=== PATIENT | male | born 1970 | race Caucasian/White ===

== ENCOUNTER → 2023-06-09 23:20 | Outpatient (CLI) | payer BC, SELFPAY ==
[2023-06-09 18:12] LABS: Alanine Aminotransferase 27 U/L (12-78); Albumin Level 4.8 g/dl (3.5-5.0); Albumin/Globulin Ratio 1.4 (1.1-1.8); Alkaline Phosphatase 74 U/L (38-126); Aspartate Amino Transferase 32 U/L (17-59); Bilirubin,Total 0.4 mg/dl (0.2-1.3); Blood Urea Nitrogen 14 mg/dl (9-20); Calcium 9.7 mg/dl (8.4-10.2); Carbon Dioxide 32 mmol/L (22.0-30.0); Chloride 102 mmol/L (98-107); Chol/HDL Ratio 3.4 (1-3.5); Cholesterol 244 mg/dl (140-200); Estimated Glomerular Filt Rate 119 ml/min (>60); GFR (African American) 144 ML/MIN (>60); Globulin 3.4 g/dL (1.3-3.2); Glucose 162 mg/dl (74-100); HDL Cholesterol 72 mg/dl (40-60); Sodium 143 mmol/L (136-145); Total Protein,Serum 8.2 g/dl (6.3-8.2); Triglycerides 245 mg/dl (30-150); VLDL Cholesterol 49 mg/dL (0-40)
[2023-06-09 18:21] LABS: Amphetamine/Metha Screen,Urine Negative ng/ml (<1000); Benzodiazepines Screen,Urine Negative ng/ml (<200)
[2023-06-09 18:22] LABS: Barbiturates Screen,Urine Negative ng/ml (<200)
[2023-06-09 18:23] LABS: Direct LDL Cholesterol 124.75 mg/dL (100-129)
[2023-06-09 18:23] LABS: Cannabinoid Screen,Urine Negative ng/ml (<50); Methadone Screen,Urine Negative ng/ml (<300)
[2023-06-09 18:24] LABS: Cocaine Screen,Urine Negative ng/ml (<300)
[2023-06-09 18:25] LABS: Opiate Screen,Urine Negative ng/ml (<300)
[2023-06-09 18:26] LABS: Phencyclidine Screen,Urine Negative ng/ml (<25)
[2023-06-09 18:34] LABS: Microalbumin/Creatinine Ratio 82.9
[2023-06-09 18:37] LABS: Creatinine,Urine Random 171 mg/dL (Not Estab.)
[2023-06-09 18:38] LABS: Basophils # 0.1 K/mm3 (0-0.2); Basophils % 0.9 % (0.1-2.0); Eosinophils # 0.5 K/mm3 (0.0-0.4); Eosinophils % 7.6 % (0.1-12.0); Hematocrit 45.3 % (42.0-52.0); Hemoglobin 15.1 g/dL (14.1-18.0); Lymphocytes # 2.3 K/mm3 (0.7-4.5); Lymphocytes % 34.1 % (10-50); Mean Corpuscular HGB Conc 33.4 g/dL (31.8-35.4); Mean Corpuscular Hemoglobin 30.6 pg (27.0-31.2); Mean Corpuscular Volume 91.8 fl (80-94); Mean Platelet Volume 8.6 fl (7.4-10.4); Monocytes # 0.4 K/mm3 (0.1-1.0); Monocytes % 6.4 % (1.7-9.3); Neutrophils # 3.4 K/mm3 (1.8-7.8); Platelet Count 304 K/mm3 (142-424); Red Blood Count 4.94 M/mm3 (4.60-6.20); Red Cell Distribution Width 13.1 % (11.5-17.5); White Blood Count 6.7 K/mm3 (4.8-10.8)
[2023-06-09 18:43] LABS: Hemoglobin A1C 6.2 % (4.0-6.0); Prostate Specific Ag Screen 1.5 ng/ml (0.0-4.0); Thyroid Stimulating Hormone 1.02 uIU/mL (0.465-4.68)
== END ==
PROVIDERS: PCP Emergency Medicine; Visit Provider Nurse Practitioner Family
DX: E11.9 Type 2 diabetes mellitus without complications (principal); Z76.89 Persons encountering health services in other specified circumstances; Z79.899 Other long term (current) drug therapy; Z79.84 Long term (current) use of oral hypoglycemic drugs; Z12.5 Encounter for screening for malignant neoplasm of prostate
CPT/HCPCS: 80053; 80061; 80305; 82043; 82306; 82570; 83036; 84443; 85025; G0103

== ENCOUNTER 2023-12-29 09:12 | Outpatient (CLI) | payer BC, SELFPAY ==
--- NOTE | 2023-12-29 09:47 | XR_ITS ---
FINAL REPORT CLINICAL HISTORY: shortness of breath states congestion & sinus infection for about a month COMPARISON: None FINDINGS: Two views of the chest were obtained. The heart size and pulmonary vascularity are within normal limits. The mediastinum is normal. No acute pulmonary abnormality is identified. There is no pneumothorax. The bony thorax is intact. IMPRESSION: No active cardiopulmonary disease. Reviewed, Interpreted and Dictated by Juancarlos Rodríguez III, MD Transcribed by Yu Grant Authenticated and [facility]
[2023-12-29 17:54] LABS: Coronavirus 19, PCR Not Detected (NotDetected); Influenza A, PCR Not Detected (NotDetected); Influenza B, PCR Not Detected (NotDetected)
== END 2023-12-29 23:59 | disposition home or self-care (01) ==
LOC: RAD 09:12
PROVIDERS: PCP Nurse Practitioner Family; Visit Provider Family Medicine
DX: R06.2 Wheezing (principal); J40 Bronchitis, not specified as acute or chronic; R69 Illness, unspecified
CPT/HCPCS: 71046; 87636

== ENCOUNTER 2024-03-20 09:30 | Outpatient (CLI) | payer BC, SELFPAY ==
[2024-03-21 07:26] LABS: Creatinine,Urine Random 83 mg/dL (Not Estab.)
== END 2024-03-20 23:59 | disposition home or self-care (01) ==
LOC: LAB.DROPOF 03-21 09:30
PROVIDERS: PCP Nurse Practitioner Family; Visit Provider Nurse Practitioner Family
DX: E11.9 Type 2 diabetes mellitus without complications (principal); I10 Essential (primary) hypertension; Z79.899 Other long term (current) drug therapy
CPT/HCPCS: 82043; 82570

== ENCOUNTER 2024-03-29 11:07 | Outpatient (CLI) | payer BC, SELFPAY ==
[2024-03-29 11:52] LABS: Basophils % 0.6 % (0.1-2.0); Eosinophils # 0.1 K/mm3 (0.0-0.4); Eosinophils % 0.7 % (0.1-12.0); Hematocrit 35.4 % (42.0-52.0); Hemoglobin 12.6 g/dL (14.1-18.0); Lymphocytes # 2.4 K/mm3 (0.7-4.5); Lymphocytes % 34.4 % (10-50); Mean Corpuscular HGB Conc 35.5 g/dL (31.8-35.4); Mean Corpuscular Hemoglobin 32.1 pg (27.0-31.2); Mean Corpuscular Volume 90.5 fl (80-94); Mean Platelet Volume 7.5 fl (7.4-10.4); Monocytes # 0.6 K/mm3 (0.1-1.0); Neutrophils % 56.2 % (37.0-80.0); Platelet Count 298 K/mm3 (142-424); Red Blood Count 3.91 M/mm3 (4.60-6.20); Red Cell Distribution Width 13.5 % (11.5-17.5); White Blood Count 7.1 K/mm3 (4.8-10.8)
[2024-03-29 13:29] LABS: Alanine Aminotransferase 17 U/L (12-78); Albumin Level 4.2 g/dl (3.5-5.0); Albumin/Globulin Ratio 1.7 (1.1-1.8); Alkaline Phosphatase 58 U/L (38-126); Anion Gap 8.9 mEq/L (5-15); Aspartate Amino Transferase 25 U/L (17-59); Bilirubin,Total 0.5 mg/dl (0.2-1.3); Blood Urea Nitrogen 12 mg/dl (9-20); Calcium 9.7 mg/dl (8.4-10.2); Carbon Dioxide 30 mmol/L (22.0-30.0); Chloride 104 mmol/L (98-107); Chol/HDL Ratio 2.3 (1-3.5); Cholesterol 158 mg/dl (140-200); Estimated Glomerular Filt Rate 118 ml/min (>60); GFR (African American) 143 ML/MIN (>60); Globulin 2.5 g/dL (1.3-3.2); Glucose 115 mg/dl (74-100); HDL Cholesterol 70 mg/dl (40-60); Potassium 3.9 mmoL/L (3.5-5.1); Sodium 139 mmol/L (136-145); Total Protein,Serum 6.7 g/dl (6.3-8.2); Triglycerides 85 mg/dl (30-150); VLDL Cholesterol 17 mg/dL (0-40)
[2024-03-29 13:40] LABS: Direct LDL Cholesterol 63.47 mg/dL (100-129)
[2024-03-29 13:45] LABS: 25-OH Vitamin D, Total 36.1 ng/mL (30-100)
[2024-03-29 14:00] LABS: Thyroid Stimulating Hormone 0.79 uIU/mL (0.465-4.68)
[2024-03-29 15:06] LABS: Hemoglobin A1C 5.8 % (4.0-6.0)
== END 2024-03-29 23:59 | disposition home or self-care (01) ==
LOC: LAB 11:11
PROVIDERS: PCP Nurse Practitioner Family; Visit Provider Nurse Practitioner Family
DX: J06.9 Acute upper respiratory infection, unspecified (principal); I10 Essential (primary) hypertension; Z68.25 Body mass index [BMI] 25.0-25.9, adult
CPT/HCPCS: 36415; 80050; 80053; 80061; 82306; 83036; 84443; 85025

== ENCOUNTER 2025-03-22 09:42 | Outpatient (CLI) | payer BC, SELFPAY ==
--- OUTSIDE RECORDS SUMMARY | 2025-03-22 09:45 | XMS_ITS | Encounter Summary ---
Author Organization Healthcare Address [address] [id number] Care Team Providers Care Management Manager Name Role Phone Jefferson Sanchez APRN Primary Care Provider [phone] Reason for Visit * Reason Comments Med Refill Encounter Details Date Type Department Care Team (Late st Contact Info) Description 01/29/2024 Refill [facility] [address] [place] [address] Margot Suarez MD [address] [place] [address] Social History Tobacco Use Types Packs/Day Years Used Date Smoking Tobacco: Never Smokeless Tobacco: Never PHQ-2 Answer Date Recorded Patient Health Questionnaire-2 Score 0 02/03/2023 PHQ-2A Answer Date Recorded Patient Health Questionnaire-2 Score 0 02/03/2023 Sex and Gender Information Value Date Recorded Sex Assigned at Not on file Legal Sex Male 8:31 PM EDT Gender Identity Not on file Sexual Orientation Not on file documented as of this encounter Plan of Treatment Not on file documented as of this encounter Visit Diagnoses Not on filedocumented in this encounter Additional Health Concerns Assessment Noted Time A fall risk assessment has been complete d for the patient 05/20/2021 12:44 PM EDT A Body Mass Index follow-up plan has been documented for the patient 02/03/2023 4:13 PM EDT documented as of this encounter Care Teams Management Manager Relationship Specialty Start Date End Date Jefferson Sanchez APRN [address] [facility] JEET Sharma [id number] PCP - General 01/24/24 documented as of this encounter
--- OUTSIDE RECORDS SUMMARY | 2025-03-22 09:45 | XMS_ITS | Encounter Summary ---
Author Organization [facility] Address [address] [id number] Care Team Providers Care Crossband Layer Name Role Phone Margot Suarez MD Primary Care Provider [phone] Jefferson Sanchez APRN Primary Care Provider [phone] Reason for Visit * Reason Comments Med Refill Encounter Details Date Type Department Care Team (Late st Contact Info) Description 03/14/2021 [facility]ill [facility] [address] [place] [address] Margot Suarez MD [address] [place] [address] Social History Tobacco Use Types Packs/Day Years Used Date Smoking Tobacco: Never Sex and Gender Information Value Date Recorded Sex Assigned at Not on file Legal Sex Male 8:31 PM EDT Gender Identity Not on file Sexual Orientation Not on file documented as of this encounter Miscellaneous Notes * Telephone Encounter - Margo Post, PharmD - 03/15/2021 8:30 PM EDT Per protocol, the following medications, meloxicam, have been approved for #30 + 0 refills. The medication refill request(s) have been sent to [facility] pharmacy. Patient must make appointment for additional refills. documented in this encounter Plan of Treatment Not on file documented as of this encounter Visit Diagnoses Not on filedocumented in this encounter Care Teams Crossband Layer Relationship Specialty Start Date End Date Margot Suarez MD [address] [place] [phone] PCP - General 01/29/21 01/23/24 Jefferson Sanchez APRN [address] [place] [address] PCP - General 01/24/24 documented as of this encounter
--- OUTSIDE RECORDS SUMMARY | 2025-03-22 09:45 | XMS_ITS | Encounter Summary ---
Author Organization Healthcare Address [address] [address] Care Team Providers Care Social Media Analyst Name Role Phone Jefferson Sanchez APRN Primary Care Provider [phone] Reason for Visit * Reason Comments Med Refill Encounter Details Date Type Department Care Team (Late st Contact Info) Description 08/22/2024 Refill [facility] [address] [place] [address] Margot Suarez MD [address] [place] [address] Type 2 diabetes mellitus without complication, without long-term current use of insulin ([facility]) Social History Tobacco Use Types Packs/Day Years [...] documented as of this encounter Visit Diagnoses Diagnosis Type 2 diabetes mellitus without complication, without long-term current use of insulin documented in this encounter Additional Health Concerns Assessment Noted Time A fall risk assessment has been complete d for the patient 05/20/2021 12:44 PM EDT A Body Mass Index follow-up plan has been documented for the patient 02/03/2023 4:13 PM EDT documented as of this encounter Care Teams Social Media Analyst Relationship Specialty Start Date End Date Jefferson Sanchez APRN [address] [place] [address] PCP - General 01/24/24 documented as of this encounter
--- OUTSIDE RECORDS SUMMARY | 2025-03-22 09:45 | XMS_ITS | Data Portability ---
Author Organization [facility] KEIRY Mccall P[facility] CLOS[facility] Address [address] [place] [address] Care Team Providers Care Investigator Cash Shortage Name Role Phone EMILE LOMAX Primary Care Provider Assessment No assessment recorded. Plan of Treatment Reminders Order Date Submit Date Provider Last Modified By Organization Details Last Modified Time Details Appointments BOTOX MIGRAINE 2024 11:30A M SAL DODGE DO Not available Not available Not available Lab None recorded. Referral None recorded. Procedures None recorded. Surgeries None recorded. Imaging None recorded. Medication Orders ondansetr on 8 mg disintegr ating tablet 2024 025 [facility] [address] [place], [address], 12/13/2024 09:23:17 Patient TargetsNo targets recorded. Patient Instructions Encounter Date Encounter Id Patient Instructions Last Modified By Organization Details Last Modified Time 08/29/2024 [id number] medical record request* - [facility] records, specifically need last office botox note [email or web address] Not available 09/05/2024 08:33:35 Reason for Referral None Reported. Problems Name Problem SNOMED Code Status Onset Date Resolution Date Notes Provider Name and Address Organization Details Recorded Time Chronic intractable migraine without aura 3281286777517 05 Active 2024 SAL DODGE DO [address] [place], [address] , [facility] 09:22:18 Problem Notes None recorded. Procedures Surgical History Date Name Laterality Status Provider Name and Address Organization Details Recorded Time 5 Botox Injection - Migraine completed SAL DODGE, DO [address] [place], [address], [facility] 02/27/2025 12:48:42 5 Botox Injection - Migraine completed SAL DODGE, DO [address] [place], [address], [facility] 12/12/2024 09:22:17 4 Botox Injection - Migraine completed SAL DODGE, DO [address] [place], [address], [facility] 09/16/2024 08:54:09 Imaging Results None recorded. Procedure Notes None recorded. Medical Equipment None Reported. Allergies Allergen ID Allergen Name Allergen Category Reaction Reaction Severity Criticality Documentation Date Start Date Code Code System Note Provider Name and Address Organization Details Recorded Time 172270 clindamyc in Not available diarrhea Not available Not available 08/29/2024 2582 RxNorm Lacey Kelsy [facility] 08:31:56 Medications Name Sig Start Date Stop Date Status Note LastModified by Organization Details LastModified Time atorvastat in 20 mg tablet Take 1 tablet every day by oral route. active Not Available Not Available No t Available hydrocodon e 5 mg-acetami nophen 325 mg tablet Take 1 tablet twice a day by oral route. active Not Available Not Available No t Available meloxicam 15 mg tablet Take 1 tablet every day by oral route. active Not Available Not Available No t Available aspirin 81 mg tablet,del ayed release Take 1 tablet every day by oral route. active Not Available Not Available No t Available ondansetro n 8 mg disintegra ting tablet Place 1 tablet every day by transling ual route as needed for 30 days. 2024 active Not Available Not Available Not Avai lable Vitamin C 250 mg chewable tablet Take 1 tablet every day by oral route. active Not Available Not Available No t Available propranolo l 40 mg tablet Take 1 tablet twice a day by oral route. active Not Available Not Available No t Available metformin 1,000 mg tablet Take 1 tablet twice a day by oral route. active Not Available Not Available No t Available lisinopril 5 mg tablet Take 1 tablet twice a day by oral route. active Not Available Not Available No t Available Januvia 25 mg tablet Take 1 tablet every day by oral route. active Not Available Not Available No t Available Botox 200 unit injection Take by injection route. active 08/29/24 -- May 2024 last injection Not Available Not Available Not Available [facility] Multivitam in For Men active Not Available Not Available N ot Available Ubrelvy 100 mg tablet Take one tablet at onset of migraine. active Not Available Not Available No t Available Vitals Date Recorded Body height Body mass index (BMI) Body weight Systolic And Diastolic Provider Name and Address Organization Details Last Updated DateTime 12/13/2024 173.99 cm 26.7 kg/m2 11713.24 g 130/82 mm[Hg] [facility] 12/13/2024 08:40:47 Date Recorded Body height Body mass index (BMI) Body weight Heart rate Oxygen saturation Oxygen saturation in Arterial blood by Pulse oximetry Systolic And Diastolic Provider Name and Address Organization Details Last Updated DateTime 5 173.99 cm 26.2 kg/m2 24944.6 6 g 85 /min 95 % 95 % 130/82 mm[Hg] [facility] 5 11:32:03 Date Recorded Body height Body mass index (BMI) Body weight Heart rate Oxygen saturation Oxygen saturation in Arterial blood by Pulse oximetry Systolic And Diastolic Provider Name and Address Organization Details Last Updated DateTime 4 173.99 cm 26.4 kg/m2 82455.2 6 g 76 /min 96 % 96 % 142/84 mm[Hg] Lacey Tierney [facility] 4 08:38:33 Date Recorded Body height Body mass index (BMI) Body weight Heart rate Oxygen saturation Oxygen saturation in Arterial blood by Pulse oximetry Systolic And Diastolic Provider Name and Address Organization Details Last Updated DateTime 4 173.99 cm 26.4 kg/m2 89597.2 6 g 77 /min 98 % 98 % 138/82 mm[Hg] Racquel Cabrera [facility] 4 08:34:02 Social History Question Answer Notes LastModified by Organizat ion Details LastModified Time Tobacco Smoking Status Never [facility]oker [facility] 08/29/2024 08:33:30 What Was The Date Of Your Most Recent Tobacco Screening? 08/29/2024 [email or web address] Information not available 08/29/2024 What Is Your Relationship Status? [email or web address] Information not available 08/29/2024 Sex: Male Functional Status Question Answer Note LastModified by Organizat ion Details LastModified Time Do you use any illicit or recreational drugs? No [email or web address] Information not available 08/29/2024 What is your level of alcohol consumption? Occasional [email or web address] Information not available 08/29/2024 Are you currently employed? Yes [email or web address] Information not available 08/29/2024 What is your occupation? sophie [email or web address] Information not available 08/29/2024 Mental Status None recorded. Family History Nothing Reported. Medical History Condition Response Anxiety Disorder N Diabetes Y Arthritis Y Parkinson's Disease N Tuberculosis N Cancer N Alzheimer's N Migraines Y Stroke N Depression N Glaucoma N High Cholesterol Y Heart Disease N Hypertension Y Neurological Problems N Past Encounters Encounter ID Performer Location Encounter Start Date Encounter Closed Date Diagnosis/Indication Diagnosis SNOMED-CT Code Diagnosis ICD10 Code Diagnosis Note [id number] SAL DODGE DO [facility] [address] [place] [address] 08/29/2024 08:19:09 08/30/2024 05:35:17 Chronic intractable migraine without aura 5024139566 46727 G43.711 Chronic condition that is not controlled . He is overdue for his botox injections so the headaches have significan t increased in frequency and severity. Will request his records and work on getting the botox approved to continue his treatment. He will also continue the propranolo l and ubrelvy. He does not need refills on these medication today. [id number] SAL DODGE DO NE[facility]OLOG[facility] [address] [place] [address] 09/16/2024 08:16:16 09/17/2024 09:00:06 Chronic intractable migraine without aura 7946799964 12957 G43.711 Chronic condition that is not controlled . He is overdue for his botox injections so the headaches have significan t increased in frequency and severity. He will also continue the propranolo l and ubrelvy. He does not need refills on these medication today. [id number] SAL DODGE DO NEUROLOGY [facility] [address] [place] [address] 12/13/2024 08:24:42 12/17/2024 00:22:04 Chronic intractable migraine without aura 6874474772 37499 G43.711 Chronic condition that is stable with BOTOX. Continue propranolo l and ubrelvy. Will send in some zofran for his nausea [id number] SAL DODGE DO NEUROLOGY [address] [place] [address] 02/28/2025 11:24:21 02/28/2025 11:57:47 Chronic intractable migraine without aura 4346336438 35335 G43.711 Chronic condition that is stable with BOTOX. Continue propranolo l and ubrelvy. Health Concerns Section Related Observation LastModified by Organization Detai ls LastModified Time None Recorded Concern Status LastModified by Organization Details LastModified Time None Recorded Advance Directives Directive None Recorded Payers Insurance Date Sequence Insurance Name Policy Number Policy Carbone Covered Member ID Carbone Member ID Guarantor Name 03/03/2025 1 [place] [id number] Librado Goldstein [id number] Librado Goldstein Notes Date Note Type Note Provider Name and Address Organization Details Recorded Time 08/29/2024 text/html 54 y/o right handed male here for neurologic follow up on his migraines. He is a former patient of mine from [place]. He has been receiving botox injections for several years to control his headaches. His last injections were done in March he believes.He takes propranolol for migraines and blood pressure. He uses ubrelvy for acute migraines.His headaches have gotten much worse since he his behind on his injections.He is having daily headaches and a severe migraine 2-3 times a week. He has had to miss work couple times a week here of late due to the severity of his migraines. His PCP does prescribe hydrocodone for chronic pain. He has chronic neck pain. He use to see pain management but injections were of no benefit so he stopped going. SAL DODGE DO [address] [place], [address], [facility] 08/29/2024 09:06:06 09/16/2024 text/html Librado comes in f or his routine BOTOX injections for chronic migraines. He has been on the combination of botox and propranolol to control his migraines. He has ubrelvy for acute migraines. His last injections were 03/29/24.He has been having more severe headaches since he has had a gap in his botox treatments. He has ubrelvy as needed for acute migraines.He denies any new medical issues since his last visit. PRIOR VISIT: (08/29/24)54 y/o right handed male here for neurologic follow up on his migraines. He is a former patient of mine from [place]. He has been receiving botox injections for several years to control his headaches. His last injections were done in March he believes.He takes propranolol for migraines and blood pressure. He uses ubrelvy for acute migraines.His headaches have gotten much worse since he his behind on his injections.He is having daily headaches and a severe migraine 2-3 times a week. He has had to miss work couple times a week here of late due to the severity of his migraines. His PCP does prescribe hydrocodone for chronic pain. He has chronic neck pain. He use to see pain management but injections were of no benefit so he stopped going. SAL DODGE, DO [address] [place], [address], [facility] 09/16/2024 08:54:24 12/13/2024 text/html Librado comes in today for his routine BOTOX injections. He did well with the last injections. He has noticed a reduction in headache days but he does have a headache this morning. He has some nausea so he didn't try his ubrelvy. He denies any new health issues. PRIOR VISIT: (09/16/24)Librado comes in for his routine BOTOX injections for chronic migraines. He has been on the combination of botox and propranolol to control his migraines. He has ubrelvy for acute migraines. His last injections were 03/29/24.He has been having more severe headaches since he has had a gap in his botox treatments. He has ubrelvy as needed for acute migraines.He denies any new medical issues since his last visit. PRIOR VISIT: (08/29/24)54 y/o right handed male here for neurologic follow up on his migraines. He is a former patient of mine from [place]. He has been receiving botox injections for several years to control his headaches. His last injections were done in March he believes.He takes propranolol for migraines and blood pressure. He uses ubrelvy for acute migraines.His headaches have gotten much worse since he his behind on his injections.He is having daily headaches and a severe migraine 2-3 times a week. He has had to miss work couple times a week here of late due to the severity of his migraines. His PCP does prescribe hydrocodone for chronic pain. He has chronic neck pain. He use to see pain management but injections were of no benefit so he stopped going. SAL DODGE, DO [address] [place], [address], [facility] 12/13/2024 09:24:35 02/28/2025 text/html Librado comes in today for his routine botox injections. He has been stable since the last injections. He reports a couple bad migraines and he will have a dull headache about once a week. He finds his botox injections with the propranolol are working well.He can use ubrelvy and hydrocodone for an acute migraines. PRIOR VISIT: (12/13/24)Librado comes in today for his routine BOTOX injections. He did well with the last injections. He has noticed a reduction in headache days but he does have a headache this morning. He has some nausea so he didn't try his ubrelvy. He denies any new health issues. PRIOR VISIT: (09/16/24)Librado comes in for his routine BOTOX injections for chronic migraines. He has been on the combination of botox and propranolol to control his migraines. He has ubrelvy for acute migraines. His last injections were 03/29/24.He has been having more severe headaches since he has had a gap in his botox treatments. He has ubrelvy as needed for acute migraines.He denies any new medical issues since his last visit. PRIOR VISIT: (12/12/24)54 y/o right handed male here for neurologic follow up on his migraines. He is a former patient of mine from [place]. He has been receiving botox injections for several years to control his headaches. His last injections were done in March he believes.He takes propranolol for migraines and blood pressure. He uses ubrelvy for acute migraines.His headaches have gotten much worse since he his behind on his injections.He is having daily headaches and a severe migraine 2-3 times a week. He has had to miss work couple times a week here of late due to the severity of his migraines. His PCP does prescribe hydrocodone for chronic pain. He has chronic neck pain. He use to see pain management but injections were of no benefit so he stopped going. SAL DODGE, [facility] [place], [address], [facility] 02/28/2025 11:56:17
--- OUTSIDE RECORDS SUMMARY | 2025-03-22 09:45 | XMS_ITS | Encounter Summary ---
Author Organization [facility] Address [address] [id number] Care Team Providers Care Emergency Medical Technician Name Role Phone Margot Suarez MD Primary Care Provider [phone] Jefferson Sanchez APRN Primary Care Provider [phone] Reason for Visit * Reason Comments Med Refill Encounter Details Date Type Department Care Team (Late st Contact Info) Description 05/18/2021 Refill [facility] [address] [place] [address] Margot Suarez MD [address] [place] [address] Social History Tobacco Use Types Packs/Day Years Used Date Smoking Tobacco: Never Smokeless Tobacco: Never PHQ-2 Answer Date Recorded Patient Health Questionnaire-2 Score 0 05/20/2021 Sex and Gender Information Value Date Recorded Sex Assigned at Not on file Legal Sex Male 8:31 PM EDT Gender Identity Not on file Sexual Orientation Not on file COVID-19 Exposure Response Date Recorded In the last month, have you been in contact with someone who was confirmed or suspected to have Coronavirus / COVID-19? Unable to assess 05/20/2021 12:33 PM EDT documented as of this encounter Functional Status * Over the past 2 weeks, how often have you been bothered by any of the following problems? Question Answer Date of Assessment Author Little interest or pleasure in doing things Not at all 05/20/2021 12:44 PM EDT Robyn Mendez LPN Feeling down, depressed, or hopeless Not at all 05/20/2021 12:44 PM EDT Robyn Mendez LPN Patient Health Questionnaire-2 Score 0 05/20/2021 12:44 PM EDT Sharron Mendez LPN * Calculated C-SSRS Risk Score (Lifetime/Recent) Answer Date of Assessment Author No Risk Indicated 05/20/2021 12:44 PM EDT Robyn Canela LPN * Question Answer Date of Assessment Author 1. Wish to be (Past 1 Month) No 05/20/2021 12:44 PM EDT Robyn Mendez LPN 2. Non-Specific Active Suici jamie Thoughts (Past 1 Month) No 05/20/2021 12:44 PM EDT Jimmy Mendez LPN 6. Suicidal Behavior (Lifetime) No 12:44 PM EDT Robyn Mendez LPN documented as of this encounter Plan of Treatment Not on file documented as of this encounter Visit Diagnoses Not on filedocumented in this encounter Care Teams Emergency Medical Technician Relationship Specialty Start Date End Date Margot Suarez MD [address] [place] [id number] PCP - General 01/29/21 01/23/24 Jefferson Sanchez APRN [address] [place] [id number] PCP - General 01/24/24 documented as of this encounter
--- OUTSIDE RECORDS SUMMARY | 2025-03-22 09:45 | XMS_ITS | Clinical Summary ---
Author Organization Healthcare Address [address] [place] [address] Care Team Providers Care Application Software Developer Name Role Phone Jefferson Sanchez APRN Primary Care Provider Allergies Active Allergy Reactions Criticality Noted Date Comments Clindamycin Diarrhea Low 06/30/2020 Medications propranolol (Inderal) 40 MG tablet Take 40 mg by mouth 2 (two) times a day. 1 Active Lancets (OneTouch Delica Plus [id number]) misc 1 Active HYDROcodone-acetami nophen ([place]) 5-325 MG tablet 2 (two) times a day if needed. 1 Active OneTouch Ultra test strip 1 Active ascorbic acid (Vitamin C) 500 MG tablet 1 Active ondansetron ODT (Zofran-ODT) 8 MG disintegrating tablet DISSOLVE 1 TABLET IN MOUTH EVERY 8 HOURS 2 Active onabotulinumtoxinA (Botox) 100 units injection Inject into the muscle 1 (one) time. Every 3 months Active Multiple Vitamins-Minerals (MULTIVITAMIN ADULTS 50+ PO) Take 1 tablet by mouth 1 (one) time each day. Active aspirin (EQ Aspirin Adult Low Dose) 81 MG EC tabletIndications:H yperlipidemia, unspecified hyperlipidemia type Take 1 tablet (81 mg) by mouth 1 (one) time each day. as directed 90 tablet 3 3 Active lisinopril 10 MG tabletIndications:E ssential (primary) hypertension Take 1 tablet (10 mg) by mouth 2 (two) times a day. 180 tablet 3 3 Active metFORMIN (Glucophage) 1000 MG tabletIndications:T ype 2 diabetes mellitus without complication, without long-term current use of insulin Take 1 tablet (1,000 mg) by mouth 2 (two) times a day with meals. 180 tablet 3 3 Active ubrogepant (Ubrelvy) 100 MG tablet Take 1 tablet (100 mg) by mouth 1 (one) time each day. After 2 hours, a second dose may be taken if needed. Maximum dose: 200 mg in 24-hour period. 30 tablet 3 Active tiZANidine (Zanaflex) 4 MG tabletIndications:C ervicalgia Take 1 tablet (4 mg) by mouth every 6 (six) hours if needed for muscle spasms for up to 10 days. 90 tablet 3 Active atorvastatin (Lipitor) 20 MG tablet Take 1 tablet (20 mg) by mouth 1 (one) time each day. 90 tablet 3 3 Active SITagliptin (Januvia) 100 MG tabletIndications:T ype 2 diabetes mellitus without complication, without long-term current use of insulin Take 1 tablet (100 mg) by mouth 1 (one) time each day. 90 tablet 4 Active meloxicam (Mobic) 15 MG tabletIndications:C ervicalgia Take 1 tablet (15 mg) by mouth 1 (one) time each day. 90 tablet 4 Active Active Problems Problem Noted Date Diagnosed Date Balanitis 05/04/2021 Diabetes mellitus, type 2 07/02/2020 Essential (primary) hypertension 07/02/2020 Migraine 07/02/2020 Immunizations Immunization Administration Dates Next Due Influenza, seasonal, injectable, preservative fr ee 05/16/2017 Zoster, Recombinant 02/03/2023 Family History Medical History Relation Name Comments arteriosclerotic cardiovascular disease Paternal Grand father Relation Name Status Comments Paternal Grandfather Social History Tobacco Use Types Packs/Day Years [...] on file Sexual Orientation Not on file Last Filed Vital Signs Vital Sign Reading Time Taken Comments Blood Pressure 138/86 02/03/2023 3:17 PM EDT Pulse 82 02/03/2023 3:17 PM EDT Temperature 36.3 C (97.4 F) 05/20/2021 12:42 PM EDT Respiratory Rate 18 05/20/2021 12:42 PM EDT Oxygen Saturation 98% 02/03/2023 3:17 PM EDT Inhaled Oxygen Concentration - - Weight 82 kg (180 lb 12.4 oz) 02/03/2023 3:17 PM EDT Height 174 cm (5' 8.5 ) 02/03/2023 3:17 PM EDT Body Mass Index 27.09 02/03/2023 3:17 PM EDT Plan of Treatment Health Maintenance Due Date Last Done Comments [facility]-HIV Screening 1970 [facility]-Hepatitis C Screening 1971 [facility]-Infant/Child/Adol SDOH Screenings 1971 [id number] Vaccine (#1) 1976 Diabetes: Dental Exam 1981 [facility]- SDOH Screenings 1989 [facility]-Adult SDOH Screenings 1989 [facility]-DTaP,Tdap,and Td Vaccines (1 - Tdap) 1990 [facility]-Hepatitis B Vaccines (1 of 3 - 19+ 3-dose series) 1990 [facility]-Pneumococcal Vaccine: 50+ Years (1 of 2 - PCV) 1990 CT Colonography 2016 FIT-DNA 2016 FIT 2016 FOBT 2016 Sigmoidoscopy 2016 [facility]-Zoster Vaccines (2 of 2) 03/31/2023 02/03/2023 [facility]-Diabetes: Hemoglobin A1C 08/03/2023, 07/08/2022, 09/29/2021, Additional history exists [facility]-Depression Screening 02/04/2024 02/03/2023 [facility]-Influenza Vaccine (#1) 2025 05/16/2017 Colonoscopy 09/27/2029 09/27/2019 [facility]-Colorectal Cancer Screening 09/27/2029 [facility]-Obesity Intervention Completed 023, 07/08/2022, 09/29/2021, Additional history exists HPV Vaccines Aged Out No longer eligi ble based on patient's age to complete this topic [facility]-HIB Vaccines Aged Out No longer e ligible based on patient's age to complete this topic [facility]-Hepatitis A Vaccines Aged Out No longer eligible based on patient's age to complete this topic [facility]-IPV Vaccines Aged Out No longer e ligible based on patient's age to complete this topic [facility]-Rotavirus Vaccines Aged Out No lo nger eligible based on patient's age to complete this topic Procedures Procedure Name Priority Date/Time Associated Diagnosis Comments HEMOGLOBIN A1C Routine 02/03/2023 3:49 PM EDT Type 2 diabetes mellitus without complication, without long-term current use of insulin ([facility]) COLONOSCOPY EXTERNAL RESULT 09/27/2019 from Last 3 Months or Most Recently Relevant to Health Maintenance Results * (ABNORMAL) Hemoglobin A1c (02/03/2023 3:49 PM EDT) Hemoglobin A1c 6.3(H) <5.7 % 02/03/2023 6:57 PM EDT [facility] Blood Venous blood specimen / Unknown Venipuncture / Unknown 02/03/2023 3:49 PM EDT 02/03/2023 3:49 PM EDT Narrative [facility] - 02/03/2023 6:57 PM EDT HA1C Interpretive Data: Diagnosis of Diabetes: Diabetic > or = 6.5% Pre-diabetic 5.7 to 6.4% Non-diabetic < or = 5.6% Glycemic Targets for Type I and Type II Diabetics: Non- Adults <7.0% Adults <6.0% Children and Adolescents <7.5% Source: [place] [employer]. Standards of medical care in diabetes,2017. Diabetes Care.2017:40 (suppl 1):S1-S135. HbA1c assay performed by an ion-exchange chromatography method that is certified traceable to the DCCT. us Margot Suarez MD LAB BLOOD ORDERABLES Final Re sult [facility] [address] [place] [address] * COLONOSCOPY EXTERNAL RESULT (09/27/2019) Anatomical Region Laterality Modality Endoscopy Narrative 09/27/2019 Ordered by an unspecified provider. us External Provider GI PROCEDURE ORDERABLES Final Result from Last 3 Months or Most Recently Relevant to Health Maintenance Insurance ANTH Care Teams Application Software Developer Relationship Specialty Start Date End Date Jefferson Sanchez APRN [address] [place] [id number] PCP - General 01/24/24
--- OUTSIDE RECORDS SUMMARY | 2025-03-22 09:45 | XMS_ITS | Encounter Summary ---
Author Organization Healthcare Address [address] [place] [address] Care Team Providers Care Cash Van Salesperson Name Role Phone Margot Suarez MD Primary Care Provider [phone] Jefferson Sanchez APRN Primary Care Provider [phone] Encounter Details Date Type Department Care Team (Late st Contact Info) Description 04/07/2021 Outside Procedure External Location [address] [place] [address] Provider, [facility] Social History Tobacco Use Types Packs/Day Years Used Date Smoking Tobacco: Never Sex and Gender Information Value Date Recorded Sex Assigned at Not on file Legal Sex Male 8:31 PM EDT Gender Identity Not on file Sexual Orientation Not on file documented as of this encounter Plan of Treatment Not on file documented as of this encounter Procedures Procedure Name Priority Date/Time Associated Diagnosis Comments MR CERVICAL SPINE WO IV CONTRAST 04/07/2021 8:52 AM EDT documented in this encounter Results * MR Cervical Spine wo IV Contrast (04/07/2021 8:52 AM EDT) Anatomical Region Laterality Modality C-spine Magnetic Resonan ce 04/07/2021 8:52 AM EDT Narrative 04/07/2021 11:04 AM EDT [address] [address] Name: MARIEMURALI TROTTER Exam Date: 04/07/2021 : 1970 Age 50 Gender: M Physician: KASSIDY REYES Facility: [facility] Facility HSV: Outpatient Exam: MRI CERVICAL SPINE W/O FINAL REPORT CLINICAL HISTORY: . INTRACTABLE CHRONIC MIGRAINE FINDINGS: Multiplanar MR imaging of the cervical spine was performed without contrast. On the sagittal T2-weighted images, disc degeneration is seen throughout. There is no evidence of fracture. The vertebral alignment is normal. The cervical spinal cord has an unremarkable appearance without evidence of mass, edema or syrinx. The cervicomedullary junction is normal. C2-3: There is no significant canal stenosis or neural foraminal narrowing. C3-4: An annular bulge and uncovertebral osteophytes are present. There is mild right and moderate left neural foraminal narrowing. C4-5: An annular bulge and uncovertebral osteophytes are present. There is moderate right and mild left neural foraminal narrowing. C5-6: Disc osteophyte complex is present with severe bilateral neural foraminal narrowing. There is mild central canal stenosis with an AP diameter of the thecal sac of 9 mm. C6-7: Disc osteophyte complex is present with severe bilateral neural foraminal narrowing. C7-T1: There is no significant canal stenosis or neural foraminal narrowing. T1-2: An annular bulge is present. There is no significant canal stenosis or neural foraminal narrowing. IMPRESSION: Multilevel degenerative disc disease and spondylosis. Mild central canal stenosis at C5-6. Reviewed, Interpreted and Dictated by Juancarlos Rodríguez III, MD Transcribed by Mónica Taylor Authenticated by Juancarlos Rodríguez III, MD on 04/07/2021 10:49:50 [facility] Dictated By: Juancarlos Rodríguez III Transcribed By: Transcribed On: 04/07/2021 10:49 AM Electronically signed by: Juancarlos Rodríguez III 04/07/2021 Thank you for referring MURALI SALAZAR to [facility]. Legally authenticated by VIANCA Adames III 2021-04-07 10:49:50 Procedure Note Provider, Generic [place] - 04/07/[address] [address] Name: MURALI SALAZAR Exam Date: 04/07/2021 : 1970 Age 50 Gender: M Physician: KASSIDY REYES Facility: [facility] Facility HSV: Outpatient Exam: MRI CERVICAL SPINE W/O FINAL REPORT CLINICAL HISTORY: . INTRACTABLE CHRONIC MIGRAINE FINDINGS: Multiplanar MR imaging of the cervical spine was performed without contrast. On the sagittal T2-weighted images, disc degeneration is seen throughout. There is no evidence of fracture. The vertebral alignment is normal. The cervical spinal cord has an unremarkable appearance without evidence of mass, edema or syrinx. The cervicomedullary junction is normal. C2-3: There is no significant canal stenosis or neural foraminal narrowing. C3-4: An annular bulge and uncovertebral osteophytes are present. There is mild right and moderate left neural foraminal narrowing. C4-5: An annular bulge and uncovertebral osteophytes are present. There is moderate right and mild left neural foraminal narrowing. C5-6: Disc osteophyte complex is present with severe bilateral neural foraminal narrowing. There is mild central canal stenosis with an AP diameter of the thecal sac of 9 mm. C6-7: Disc osteophyte complex is present with severe bilateral neural foraminal narrowing. C7-T1: There is no significant canal stenosis or neural foraminal narrowing. T1-2: An annular bulge is present. There is no significant canal stenosis or neural foraminal narrowing. IMPRESSION: Multilevel degenerative disc disease and spondylosis. Mild central canal stenosis at C5-6. Reviewed, Interpreted and Dictated by Juancarlos Rodríguez III, MD Transcribed by Mónica Taylor Authenticated by Juancarlos Rodríguez III, MD on 04/07/2021 10:49:50 [facility] Dictated By: Juancarlos Rodríguez III Transcribed By: Transcribed On: 04/07/2021 10:49 AM Electronically signed by: Juancarlos Rodríguez III 04/07/2021 Thank you for referring MURALI SALAZAR to [facility]. Legally authenticated by VIANCA Adames III 2021-04-07 10:49:50 Generic [place] Provider IMG MRI PROCEDURES F inal Result documented in this encounter Visit Diagnoses Not on filedocumented in this encounter Care Teams Cash Van Salesperson Relationship Specialty Start Date End Date Margot Suarez MD [address] [place] [address] PCP - General 01/29/21 01/23/24 Jefferson Sanchez APRN [address] [place] [address] PCP - General 01/24/24 documented as of this encounter
--- OUTSIDE RECORDS SUMMARY | 2025-03-22 09:45 | XMS_ITS | Data Portability ---
Author Organization [facility] Bian[facility] ADMIN Address [address] [place] [address] Care Team Providers Care Chemist Pharmaceutical Name Role Phone DEYANIRA MORGAN Primary Care Provider [phone] Assessment Encounter Date Assessment Date Assessment LastModified by Organization Details LastModified Time 05/09/2023 05/09/2023 Mr. Goldstein presented to our clinic for chronic pain management. The patient has a history of chronic migraine headache. Based on the history and physical exam it appears that the pain is multifactorial in origin, including cervical spondylosis/cervi hua degenerative disc disease, spinal enthesopathy, occipital neuralgia, and migraine headache. The patient presents to the clinic today for medication refill. The patient primarily complains of headache, which originates at the base of the skull and radiates to the vertex. 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 The patient has attempted to make lifestyle modifications, but pain continues to impede performing ADLs, thereby negatively affecting quality of life. At this time, I will address occipital neuralgia. After a detailed discussion of treatment modalities and the respective risks/benefits, I will proceed with scheduling a bilateral occipital nerve block. Of note, the patient continues to follow with Dr. Claire in neuro for migraine headache, where he receives Botox injections quarterly. Because the current medication regimen is effective and well-tolerable, allowing him to remain functional, I will refill for 1 month. At the next visit, I intend on decreasing to 30 tablets monthly. The patient understands that oral opioids won't be part of the long-term treatment plan, as the goal is to manage pain through safer alternatives, including interventional procedures. MEDICATION: Refill Hydrocodone/APAP 5-325 mg Q12-24 hours prn for 1 month #45 I again had a detailed discussion with the patient regarding treatment modalities and the respective risks/benefits. I educated the patient on the dangers/risks of long-term oral opioids, particularly with increasing age, these risks include respiratory depression, not excluding . I informed the patient that the goal of [facility] will be to incorporate a multi-modal approach to pain management, which may consist of conservative, pharmacologic, and interventional approaches, ultimately decreasing pain and increasing function with focus on both safety and efficacy. The patient verbalized understanding and agreeing to the treatment plan set forth. I will follow up in 1 month for a medication refill and post-procedure. --- I have discussed in great detail our potential treatment options which would include a rehabilitative approach to care. This program would include medication management, Physical Therapy, consideration for interventional procedures as appropriate, and lifestyle modification (diet, weight loss, exercise, smoking/tobacco cessation, holistic approach including meditation and yoga). The patient understands and agrees prior to proceeding with this plan. _ __ __ __ __ __ __ __ __ __ __ __ __ __ __ __ __ __ __ __ __ __ __ __ __ __ __ __ _ RECORDS REVIEW: As per clinic policy, we will have the patient sign a release to obtain previous imaging and clinical notes. _ __ __ __ __ __ __ __ __ __ __ __ __ __ __ __ __ __ __ __ __ __ __ __ __ __ __ __ _ PSYCH: Pain affecting Neuro-psych behavior was discussed. Discussed about pain psychological counseling as a part of the multimodal approach to pain treatment. _ __ __ __ __ __ __ __ __ __ __ __ __ __ __ __ __ __ __ __ __ __ __ __ __ __ __ __ _ REHABILITATION: Discussed with the patient the importance of diet, daily physical activity and PT. Discussed with the patient the need to be scheduled for physical therapy since physical therapy will prolong the benefits of the procedure and interventions. _ __ __ __ __ __ __ __ __ __ __ __ __ __ __ __ __ __ __ __ __ __ __ __ __ __ __ __ _ NATACHA: [id number] I have reviewed patient's NATACHA report prior to prescribing Schedule II, III, and IV medications that require review by law. [place] PDMP reviewed and appropriate. UDS reviewed and consistent with current regimen. Controlled substance contract reviewed and signed line by line. Risks of medication therapy including respiratory depression, , and hazards of operating heavy machinery including automobiles discussed at length. Patient given information with six opioid/Controlled substance safety steps: 1. Never take a prescription pain medication unless it is prescribed for you. 2. Do not take pain medicine with alcohol. 3. Do not take more doses than prescribed. 4. Use with other sedative or anti-anxiety medications can be dangerous. 5. Avoid using prescription pain medication to help you fall asleep. 6. Lock up prescription pain medications. Opioid Contract Discussion: The patient was given a copy of the Clinic Prescription Drug Agreement and was counseled extensively regarding its contents. The patient is to take their pain medication exactly as prescribed. No increases in medications are to be without first contacting the office and explaining the reason behind the increase and getting approval to do so. The patient is not to obtain medications from other providers without first notifying the other provider what they obtain from this clinic and need to notify this clinic when they obtain pain medications from other providers. The patient is to bring their pain medications to each and every office visit for pill counts to monitor compliance for their safety. The patient is subject to periodic urine drug testing at the discretion of the provider as well as state and federal regulations. The patient was warned of the risks and benefits of taking opioid pain medication, the risk of addiction, the risk of withdrawal and the differences. Not available 05/10/2023 10:15:32 Plan of Treatment Reminders Order Date Submit Date Provider Last Modified By Organization Details Last Modified Time Details Appointments None recorded. Lab None recorded. Referral None recorded. Procedures occipital nerve block (PROC) - Bilateral occipital nerve block. [address]30. 2022 023 Marquise Zuleta MD, [address], [address], [place], [address], 3 09:57:29 Surgeries None recorded. Imaging None recorded. Medication Orders Botox 200 unit injection 2023 024 [email or web address] Not available 4 09:17:03 Botox 200 unit injection 2022 023 [email or web address] Not available 3 09:03:59 hydrocodone 5 mg-acetamin ophen 325 mg tablet 2022 023 [facility] [place], [address], 3 11:40:22 Patient TargetsNo targets recorded. Patient InstructionsNo instructions recorded. Reason for Referral None Reported. Problems Name Problem SNOMED Code Status Onset Date Resolution Date Notes Provider Name and Address Organization Details Recorded Time Migraine 95899290 Active 2021 Evita Dowd null, [place] - [facility] [place] [facility] [place] 2 13:36:34 Chronic intractabl e migraine without aura 6385348488358 05 Active 2021 Melissa Claire, [address], [place], [address] , [place] [facility] [place] 2 09:45:22 Cervical spondylosi s 165233459 Active 2021 Glory Cline null, [place] [facility] [place] 2 14:06:58 Opioid dependence 32844784 Active 2022 Yohana John null, [place] - [facility] [place] 3 17:10:11 Myofascial pain 864700303 Active 2022 Yohana read, [facility] [place] 3 17:10:17 Cervicogen ic headache 776203591 Active 2022 Yohana read, [facility] [place] [facility] [place] 3 17:10:18 Cervico-oc cipital neuralgia 74140266 Active 2022 Yohana read, [facility] [place] 3 09:06:32 Problem Notes None recorded. Procedures Surgical History Date Name Laterality Status Provider Name and Address Organization Details Recorded Time 4 Botox Migraine completed DO Lisha Hinojosa , [place], [address], [facility] - [facility] [place] 03/28/2024 14:51:06 4 Botox Migraine completed DO [address], [place], [address], [facility] - [facility] [place] 12/28/2023 09:05:31 excision of varicose vein completed Evita Dowd [facility] & [place] 06/24/2022 13:39:39 Imaging Results None recorded. Procedure Notes None recorded. Medical Equipment None Reported. Allergies No known drug allergies Medications Name Sig Start Date Stop Date Status Note LastModified by Organization Details LastModified Time Prescriptio n - Prior Authorizati on Request 06/30 completed PA FORM Not Available Not Available Not Available cyclobenzap rine 10 mg tablet Take 1 tablet by oral route in the evening. active Not Available Not Available No t Available amoxicillin 500 mg capsule Take 1 capsule every 8 hours by oral route. 03/29 completed Not Available Not Available Not Available fluconazole 150 mg tablet TAKE 1 TABLET BY MOUTH ONCE DAILY 10/07 completed Not Available Not Available Not Available hydrocodone 5 mg-acetamin ophen 325 mg tablet Take 1 tablet by mouth every 12 to 24 hours as needed 2022 active Not Available Not Available Not Avai lable meloxicam 15 mg tablet Take 1 tablet every day by oral route. active Not Available Not Available No t Available ondansetron HCl 4 mg tablet Take 1 tablet by oral route as needed for 3 days. 01/06 completed Not Available Not Available Not Available Medrol (Julian) 4 mg tablets in a dose pack Take by oral route as directed. 03/29 completed Not Available Not Available Not Available penicillin V potassium 500 mg tablet TAKE 1 TABLET BY MOUTH EVERY 6 HOURS 06/27 completed Not Available Not Available Not Available aspirin 81 mg tablet,ping yed release TAKE 1 TABLET BY MOUTH ONCE DAILY DIRECTED active Not Available Not Available No t Available ondansetron 8 mg disintegrat ing tablet Place 1 tablet every day by transling ual route as needed. 2022 active Not Available Not Available Not Avai lable propranolol 40 mg tablet Take 1 tablet by mouth twice daily 2022 active Not Available Not Available Not Avai lable hydrocodone 7.5 mg-acetamin ophen 325 mg tablet TAKE 1 TABLET BY MOUTH EVERY 4 TO 6 HOURS NEEDED FOR PAIN 06/27 completed Not Available Not Available Not Available metformin 1,000 mg tablet TAKE 1 TABLET BY MOUTH TWICE DAILY active Not Available Not Available No t Available ascorbate calcium (vitamin C) 500 mg tablet Take 1 tablet every day by oral route. active Not Available Not Available No t Available lisinopril 10 mg tablet TAKE 1 TABLET BY MOUTH TWICE DAILY active Not Available Not Available No t Available aspirin 81 mg chewable tablet Chew 1 tablet every day by oral route. 06/27 completed Not Available Not Available Not Available pravastatin 20 mg tablet TAKE 1 TABLET BY MOUTH ONCE DAILY active Not Available Not Available No t Available lisinopril 5 mg tablet Take 1 tablet every day by oral route. 07/14 completed Not Available Not Available Not Available diazepam 10 mg tablet take 1 tablet 1 hour prior to procedure 10/07 completed Not Available Not Available Not Available clotrimazol e 1 % topical cream APPLY CREAM TOPICALLY TWICE DAILY 10/07 completed Not Available Not Available Not Available Flonase active Not Available Not Avail able Not Available Januvia 100 mg tablet Take 1 tablet every day by oral route for 90 days. active Not Available Not Available No t Available Botox 200 unit injection INJECT 200 UNITS INTO THE MUSCLES OF THE HEAD, NECK, AND SHOULDERS EVERY 3 MONTHS FOR CHRONIC MIGRAINE WITHOUT AURA. MAY REQUIRE RECONSTIT UTION/ DILUTION REFER TO PACKAGE INSERT OR MEDICAL ORDER. active Not Available Not Available No t Available Multi Vitamin 1 qd active Not Available Not Available Not Available Jardiance 25 mg tablet Take 1 tablet every day by oral route. 10/07 completed Not Available Not Available Not Available Trulicity 0.75 mg/0.5 mL subcutaneou s pen injector 06/27 completed Not Available Not Available Not Available Aimovig Autoinjecto r 140 mg/mL subcutaneou s auto-inject or 06/30 completed Not Available Not Available Not Available Ubrelvy 100 mg tablet TAKE ONE TABLET BY MOUTH AT ONSET OF HEADACHE active Not Available Not Available No t Available BinaxNOW COVID-19 Ag Self Test kit Use as Directed on the Package 06/27 completed Not Available Not Available Not Available Vitals Date Recorded Body height Body mass index (BMI) Body weight Oxygen saturation Oxygen saturation in Arterial blood by Pulse oximetry Heart rate Systolic And Diastolic Provider Name and Address Organization Details Last Updated DateTime 4 173.99 cm 26.1 kg/m2 10866.0 7 g 97 % 97 % 73 /min 139/80 mm[Hg] Evita VENCES [facility] 09:15:14 Date Recorded Body height Body mass index (BMI) Body weight Heart rate Systolic And Diastolic Provider Name and Address Organization Details Last Updated DateTime 12/29/2023 173.99 cm 26.1 kg/m2 71154.07 g 73 /min 143/87 mm[Hg] Evita Nile V[facility] [place] 12/29/2023 11:41:05 Date Recorded Body height Body mass index (BMI) Body weight Heart rate Systolic And Diastolic Provider Name and Address Organization Details Last Updated DateTime 03/29/2024 173.99 cm 25.1 kg/m2 34499.64 g 76 /min 136/78 mm[Hg] Evita VENCES [facility] [place] 03/29/2024 09:44:11 Date Recorded Body height Body mass index (BMI) Body weight Body temperature Oxygen saturation Oxygen saturation in Arterial blood by Pulse oximetry Heart rate Systolic And Diastolic Provider Name and Address Organization Details Last Updated DateTime 3 173.99 cm 26.7 kg/m2 26094.4 4 g 98 [degF] 98 % 98 % 87 /min 184/83 mm[Hg] Ashlee MARCANO [facility] & [place] 3 15:19:06 Date Recorded Body height Body mass index (BMI) Body weight Heart rate Oxygen saturation Oxygen saturation in Arterial blood by Pulse oximetry Systolic And Diastolic Provider Name and Address Organization Details Last Updated DateTime 3 173.99 cm 26.4 kg/m2 79546.2 6 g 80 /min 97 % 97 % 160/80 mm[Hg] Evita MARCANO [facility] & [place] 3 09:05:20 Social History Question Answer Notes LastModified by [employer] Details LastModified Time Tobacco Smoking Status [facility] [place] 06/24/2022 13:38:40 What Is Your Level Of Caffeine Consumption? None Information not available 06/24/2022 What Is Your Relationship Status? Lives In A House With Children. Information not available 06/22/2023 Are You Currently In School? No Information not available 06/24/2022 Sex: Unknown Functional Status Question Answer Note LastModified by [employer] Details LastModified Time Do you use any illicit or recreational drugs? No Information not available 06/24/2022 What is your level of alcohol consumption? Occasional Information not available 06/24/2022 Are you currently employed? Yes Information not available 06/24/2022 What is your occupation? [employer] Information not available 06/24/2022 Mental Status None recorded. Family History Relationship Description Onset Age of this Age Resolved Age Notes LastModified by Organization Details LastModified Time Mother Mental health problem ldalla Not available 2021 13:36:57 Father Alive ldalla Not available 03/2022 13:37:42 Brother Cerebrovascu lar accident deceas ed ldalla Not available 06/24/2022 13:38:02 Medical History Condition Response Diabetes Y Hyperlipidemia Y Migraines Y Headaches Y Past Encounters Encounter ID Performer Location Encounter Start Date Encounter Closed Date Diagnosis/Indication Diagnosis SNOMED-CT Code Diagnosis ICD10 Code Diagnosis Note [id number] Melissa Claire DO [facility] [address] [place] [address],[address] [place] [address] 06/27/2022 11:45:33 06/27/2022 12:21:15 Chronic intractable migraine without aura 1507092825 01969 G43.719 [id number] Marquise Zuleta MD [facility] [address] [place] [address] 07/14/2022 13:04:39 07/14/2022 14:00:42 Cervical spondylosis 487699575 M47.812 Chronic in tractable migraine without aura 8670346276 41493 G43.719 Myofascial pain 13926532 9 M79.10 Cervicogenic headache 27 0172520 G44.86 [id number] EMILE ORLANDO PA-C [facility] [address] [place] [address] 09/07/2022 15:34:43 09/07/2022 15:56:07 Cervical spondylosis 882660253 M47.812 Chronic in tractable migraine without aura 5811244980 10980 G43.719 Myofascial pain 07962000 9 M79.10 Cervicogenic headache 27 7435950 G44.86 [id number] [facility] [address] [place] [address],[address] [address] 10/07/2022 11:27:21 10/07/2022 11:51:15 Chronic intractable migraine without aura 0954237126 11842 G43.719 [id number] Marquise Zuleta MD [facility] [address] [place] [address] 11/10/2022 14:49:34 11/10/2022 15:38:16 Cervical spondylosis 829122745 M47.812 Chronic in tractable migraine without aura 8925795115 44931 G43.719 Myofascial pain 60532976 9 M79.10 Cervicogenic headache 27 2165312 G44.86 Opioid dependence 052122 00 F11.20 [id number] Melissa Claire DO [facility] [address] [facility],[address] [place] [address] 01/06/2023 11:27:48 01/06/2023 11:48:49 Chronic intractable migraine without aura 7501350957 75824 G43.719 will send for some zofran dissolvabl e tablets for him to have for acute migraines. [id number] Marquise Zuleta MD [facility] [address] [facility],[address] e [address] [place] [address] 01/10/2023 15:11:12 01/10/2023 15:49:34 Cervical spondylosis 674271897 M47.812 Chronic in tractable migraine without aura 6467351289 88416 G43.719 Myofascial pain 13939915 9 M79.10 Cervicogenic headache 27 4397004 G44.86 Opioid dependence 694004 00 F11.20 [id number] Marquise Zuleta MD [facility] [address] [facility],[address] e [address] [place] [address] 03/14/2023 14:58:40 03/14/2023 15:40:25 Cervical spondylosis 870448120 M47.812 Chronic in tractable migraine without aura 7391228917 25760 G43.719 Myofascial pain 76887679 9 M79.10 Cervicogenic headache 27 6345679 G44.86 Opioid dependence 156540 00 F11.20 [id number] Dakotah DO [facility] [address] [facility],[address] [place] [address] 03/27/2023 13:00:19 03/27/2023 13:15:06 Chronic intractable migraine without aura 2038946417 52961 G43.719 [id number] Marquise Zuleta MD [facility] [address] [facility],[address] [place] [address] 05/09/2023 15:00:13 05/09/2023 15:45:01 Cervical spondylosis 322566331 M47.812 Chronic in tractable migraine without aura 0454510068 81493 G43.719 Myofascial pain 00902346 9 M79.10 Cervicogenic headache 27 7808085 G44.86 Cervico-oc cipital neuralgia 34606069 M54.81 Opioid dependence 784619 00 F11.20 [id number] Melissa Claire [facility] [address] [facility],[address] [facility] [place] [address] 06/30/2023 09:00:33 06/30/2023 09:23:52 Chronic intractable migraine without aura 9905969409 90239 G43.719 [id number] Melissa Claire [facility] [address] [facility],[address] [place] [address], [place] [address] 09/29/2023 09:02:17 09/29/2023 09:33:53 Chronic intractable migraine without aura 5951679075 92855 G43.809 [id number] Melissa Claire DO [facility] [address] [facility],[address] [place] [address], [place] [address] 12/29/2023 11:27:49 12/29/2023 12:00:58 Chronic intractable migraine without aura 1923904972 04132 G43.577 [id number] Melissa Claire DO [facility] [address] [facility],[address] [place] [address], [place] [address] 03/29/2024 09:28:13 03/29/2024 09:57:06 Chronic intractable migraine without aura 2758289457 62153 G43.719 Health Concerns Section Related Observation LastModified by Organization Detai ls LastModified Time None Recorded Concern Status LastModified by Organization Details LastModified Time None Recorded Advance Directives Directive None Recorded Payers Insurance Date Sequence Insurance Name Policy Number Policy Carbone Covered Member ID Carbone Member ID Guarantor Name 03/26/2024 1 [place] [id number] A Librado Goldstein [id number] Librado Goldstein Notes Date Note Type Note Provider Name and Address Organization Details Recorded Time 05/09/20 text/htm elias Goldstein presented to our clinic for chronic pain management. The patient has a history of chronic migraine headache. The patient presents to the clinic today for medication refill. The patient states that the current medication regimen is effective and well-tolerable, yet doesn't adequately control pain. The patient states that neck pain isn't bothersome, but headache persists. The patient states that oftentimes the headache originates at the base of the skull and radiates to the vertex. Today the pain level is a 5/10._ __ __ __ __ __ __ __ __ __ __ __ __ __ __ __ __ __ __ __ __ __ __ __ __ __ __ __ _ Initial complaint: chronic neck painOnset: gradual, several years agoContext: worsening over timeCharacter: dull, ache, throbLocation: cervical spineDuration: constant with fluctuationsInitial Intensity: 4/10Worse: bending, twisting, lifting, stooping, carrying heavy loadsBetter: restAssociated symptoms: Denies saddle anaesthesia, denies acute bowel/bladder changes, denies acute power lossADLs: The patient's pain interferes with daily chores, exercise, sleep, relationships, and walking.Current Pain Medications: opioids- reports as helpfulPrior Pain Medications: noneNSAIDS/OTC- not helpfulNon-interventional Tx: deniesSurgery: deniesPhysical Therapy: completingInterventional Tx: cervical RFAImaging/Studies: none Marquise Zuleta MD [address] , [place], [address], [facility] [place] 05/10/2023 11:40:19 06/30/20 text/htm elias Pavon comes in today for routine BOTOX injections. He is on propranolol in combination with his botox to manage his migraines. He has ubrelvy as needed for acute migraine treatment.Today he reports a significant increase in headaches in the last six weeks due to the sudden unexpected loss of his . He can use ubrelvy in combination with zofran and this definitely helps. His sleep has been poor. He has a new PCP who has tried adding some HCTZ for his persistent HTN but this makes him dizzy so he had to stop it. His bp has been running fairly high since his PRIOR VISIT: (03/27/23)Librado comes in today for his routine BOTOX injections. He reports no changes in his clinical status since the last visit. He has had to work some nights at [employer] and the lack of sleep has caused a few really bad headaches lately. PRIOR VISIT: (01/06/23)Librado comes in for routine botox injections. He has been stable in regards to headaches since the last visit. He had dental work and had some complications so this has been a trigger for some headaches of late. He does find that if he could take some zofran with has ubrelvy it would help a lot as he has significant nausea with the headaches. PRIOR VISIT: (10/07/22)Librado comes in for his routine botox injections. He reports no significant changes in his headaches. He has stopped the aimovig and really there was no significant decline in his clinical status.He has extensive dental work coming up next week. He is hoping after this his headaches will also improve as he does have severe bruxism. PRIOR VISIT: (06/27/22)Librado comes in today for routine botox injections. He has been stable since the last injections. He is late with his aimovig injections so he has noted a few more migraines recently. He remains on propranolol as an oral preventative. He averages needing Ubrelvy about once a week. This does work well for him.He is working with his dentist on getting his teeth pulled. He has terrible bruxism and his jaw is compressed. He is hopeful once in dentures this also will help his headaches. Melissa Claire, DO [address], [place], [address], [place] 06/30/2023 09:23:07 09/29/19 24 text/htm elias Pavon comes in today for routine BOTOX injections. He remains on propranolol in combination with BOTOX to control his migraines. He has ubrelvy for acute migraines. He is doing better with blood pressure control now. He has had a few bad migraines in the last week but also had a GI bug with couple days of N/V. He finds ubrelvy works well for an acute migraine. PRIOR VISIT: (06/30/23)Librado comes in today for routine BOTOX injections. He is on propranolol in combination with his botox to manage his migraines. He has ubrelvy as needed for acute migraine treatment.Today he reports a significant increase in headaches in the last six weeks due to the sudden unexpected loss of his . He can use ubrelvy in combination with zofran and this definitely helps. His sleep has been poor. He has a new PCP who has tried adding some HCTZ for his persistent HTN but this makes him dizzy so he had to stop it. His bp has been running fairly high since his PRIOR VISIT: (03/27/23)Librado comes in today for his routine BOTOX injections. He reports no changes in his clinical status since the last visit. He has had to work some nights at [employer] and the lack of sleep has caused a few really bad headaches lately. PRIOR VISIT: (01/06/23)Librado comes in for routine botox injections. He has been stable in regards to headaches since the last visit. He had dental work and had some complications so this has been a trigger for some headaches of late. He does find that if he could take some zofran with has ubrelvy it would help a lot as he has significant nausea with the headaches. PRIOR VISIT: (10/07/22)Librado comes in for his routine botox injections. He reports no significant changes in his headaches. He has stopped the aimovig and really there was no significant decline in his clinical status.He has extensive dental work coming up next week. He is hoping after this his headaches will also improve as he does have severe bruxism. PRIOR VISIT: (06/27/22)Librado comes in today for routine botox injections. He has been stable since the last injections. He is late with his aimovig injections so he has noted a few more migraines recently. He remains on propranolol as an oral preventative. He averages needing Ubrelvy about once a week. This does work well for him.He is working with his dentist on getting his teeth pulled. He has terrible bruxism and his jaw is compressed. He is hopeful once in dentures this also will help his headaches. Melissa Claire, DO [address], [place], [address], [place] 09/29/2023 09:35:55 12/29/19 24 text/htm elias Pavon comes in today for routine BOTOX injections.He remains on propranolol in combination with his botox to control the headaches. He has done fairly well since the last injections. He had a really bad migraine last night. He took ubrelvy but ended up needing his hydrocodone as well. Most of the time ubrelvy works well. PRIOR VISIT: (09/29/23)Librado comes in today for routine BOTOX injections. He remains on propranolol in combination with BOTOX to control his migraines. He has ubrelvy for acute migraines. He is doing better with blood pressure control now. He has had a few bad migraines in the last week but also had a GI bug with couple days of N/V. He finds ubrelvy works well for an acute migraine. PRIOR VISIT: (06/30/23)Librado comes in today for routine BOTOX injections. He is on propranolol in combination with his botox to manage his migraines. He has ubrelvy as needed for acute migraine treatment.Today he reports a significant increase in headaches in the last six weeks due to the sudden unexpected loss of his . He can use ubrelvy in combination with zofran and this definitely helps. His sleep has been poor. He has a new PCP who has tried adding some HCTZ for his persistent HTN but this makes him dizzy so he had to stop it. His bp has been running fairly high since his PRIOR VISIT: (03/27/23)Librado comes in today for his routine BOTOX injections. He reports no changes in his clinical status since the last visit. He has had to work some nights at [employer] and the lack of sleep has caused a few really bad headaches lately. PRIOR VISIT: (01/06/23)Librado comes in for routine botox injections. He has been stable in regards to headaches since the last visit. He had dental work and had some complications so this has been a trigger for some headaches of late. He does find that if he could take some zofran with has ubrelvy it would help a lot as he has significant nausea with the headaches. PRIOR VISIT: (10/07/22)Librado comes in for his routine botox injections. He reports no significant changes in his headaches. He has stopped the aimovig and really there was no significant decline in his clinical status.He has extensive dental work coming up next week. He is hoping after this his headaches will also improve as he does have severe bruxism. PRIOR VISIT: (06/27/22)Librado comes in today for routine botox injections. He has been stable since the last injections. He is late with his aimovig injections so he has noted a few more migraines recently. He remains on propranolol as an oral preventative. He averages needing Ubrelvy about once a week. This does work well for him.He is working with his dentist on getting his teeth pulled. He has terrible bruxism and his jaw is compressed. He is hopeful once in dentures this also will help his headaches. Melissa Claire, DO [address] [facility], [place], [address], [place] 12/29/2023 11:50:37 03/29/20 24 text/htm elias Pavon comes in today for his routine BOTOX injections.He has been stable since the last visit. He can use ubrelvy for acute migraines with good results.No new concerns today. PRIOR VISIT: (12/29/23)Librado comes in today for routine BOTOX injections.He remains on propranolol in combination with his botox to control the headaches. He has done fairly well since the last injections. He had a really bad migraine last night. He took ubrelvy but ended up needing his hydrocodone as well. Most of the time ubrelvy works well. PRIOR VISIT: (09/29/23)Librado comes in today for routine BOTOX injections. He remains on propranolol in combination with BOTOX to control his migraines. He has ubrelvy for acute migraines. He is doing better with blood pressure control now. He has had a few bad migraines in the last week but also had a GI bug with couple days of N/V. He finds ubrelvy works well for an acute migraine. PRIOR VISIT: (06/30/23)Librado comes in today for routine BOTOX injections. He is on propranolol in combination with his botox to manage his migraines. He has ubrelvy as needed for acute migraine treatment.Today he reports a significant increase in headaches in the last six weeks due to the sudden unexpected loss of his . He can use ubrelvy in combination with zofran and this definitely helps. His sleep has been poor. He has a new PCP who has tried adding some HCTZ for his persistent HTN but this makes him dizzy so he had to stop it. His bp has been running fairly high since his PRIOR VISIT: (03/27/23)Librado comes in today for his routine BOTOX injections. He reports no changes in his clinical status since the last visit. He has had to work some nights at [employer] and the lack of sleep has caused a few really bad headaches lately. PRIOR VISIT: (01/06/23)Librado comes in for routine botox injections. He has been stable in regards to headaches since the last visit. He had dental work and had some complications so this has been a trigger for some headaches of late. He does find that if he could take some zofran with has ubrelvy it would help a lot as he has significant nausea with the headaches. PRIOR VISIT: (10/07/22)Librado comes in for his routine botox injections. He reports no significant changes in his headaches. He has stopped the aimovig and really there was no significant decline in his clinical status.He has extensive dental work coming up next week. He is hoping after this his headaches will also improve as he does have severe bruxism. PRIOR VISIT: (06/27/22)Librado comes in today for routine botox injections. He has been stable since the last injections. He is late with his aimovig injections so he has noted a few more migraines recently. He remains on propranolol as an oral preventative. He averages needing Ubrelvy about once a week. This does work well for him.He is working with his dentist on getting his teeth pulled. He has terrible bruxism and his jaw is compressed. He is hopeful once in dentures this also will help his headaches. Melissa Claire, [address], [place], [address], [facility] - [place] 03/29/2024 09:56:55
--- OUTSIDE RECORDS SUMMARY | 2025-03-22 09:45 | XMS_ITS | Continuity of Care Document ---
Author Organization [facility], NEUROLOGY [address] [place] [address] Care Team Providers Care Project Surveyor Name Role Phone MONIEEMILE Primary Care Provider Assessment No assessment recorded. Plan of Treatment Reminders Order Date Submit Date Provider Last Modified By Organization Details Last Modified Time Details Appointments BOTOX MIGRAINE 2024 11:30A M SAL DODGE DO Not available Not available Not available Lab None recorded. Referral None recorded. Procedures None recorded. Surgeries None recorded. Imaging None recorded. Medication Orders None recorded. Patient TargetsNo targets recorded. Patient InstructionsNo instructions recorded. Reason for Referral None Reported. Problems Name Problem SNOMED Code Status Onset Date Resolution Date Notes Provider Name and Address Organization Details Recorded Time Chronic intractable migraine without aura 9435941135765 05 Active 2024 SAL DODGE, DO [address] [place], [address] , [facility] 5 09:22:18 Problem Notes None recorded. Procedures Surgical History Date Name Laterality Status Provider Name and Address Organization Details Recorded Time 5 Botox Injection - Migraine completed SAL DODGE, DO [address] [place], [address], [facility] 02/27/2025 12:48:42 5 Botox Injection - Migraine completed SAL DODGE DO [address] [place], [address], [facility] 12/12/2024 09:22:17 4 Botox Injection - Migraine completed SAL DODGE, DO [address] [place], [address], [facility] 09/16/2024 08:54:09 Imaging Results None recorded. Procedure Notes None recorded. Medical Equipment None Reported. Allergies Allergen ID Allergen Name Allergen Category Reaction Reaction Severity Criticality Documentation Date Start Date Code Code System Note Provider Name and Address Organization Details Recorded Time 661433 clindamyc in Not available diarrhea Not available Not available 08/29/2024 2582 RxNorm Lacey Kelsy null, [facility] 08:31:56 Medications Name Sig Start Date Stop [...] and Address Organization Details Last Updated DateTime 173.99 cm 26.2 kg/m2 48897.6 6 g 85 /min 95 % 95 % 130/82 mm[Hg] Fadia Moreland [facility] 11:32:03 Social History Question Answer Notes LastModified by [employer] Details LastModified Time Tobacco Smoking Status Never Smoker [email or web address] 08/29/2024 08:33:30 What Was The Date Of Your Most Recent Tobacco Screening? 08/29/2024 [email or web address] Information not available 08/29/2024 What Is Your Relationship Status? [email or web address] Information not available 08/29/2024 Sex: Male Functional Status Question Answer Note LastModified by [employer] Details LastModified Time Do you use any illicit or recreational drugs? No [email or web address] Information not available 08/29/2024 What is your level of alcohol consumption? Occasional [email or web address] Information not available 08/29/2024 Are you currently employed? Yes [email or web address] Information not available 08/29/2024 What is your occupation? [employer] [email or web address] Information not available 08/29/2024 Mental Status None recorded. Family History Nothing Reported. Medical History Condition Response Glaucoma N Depression N Anxiety Disorder N Arthritis Y Cancer N Stroke N High Cholesterol Y Parkinson's Disease N Alzheimer's N Migraines Y Neurological Problems N Diabetes Y Tuberculosis N Heart Disease N Hypertension Y Past Encounters Encounter ID Performer Location Encounter Start Date Encounter Closed Date Diagnosis/Indication Diagnosis SNOMED-CT Code Diagnosis ICD10 Code Diagnosis Note [id number] SAL DODGE DO NEUROLOGY [address] [place] [address] 02/28/2025 11:24:21 02/28/2025 11:57:47 Chronic intractable migraine without aura [id number] 19756 G43.711 Chronic condition that is stable with BOTOX. Continue propranolo l and ubrelvy. Health Concerns Section Related Observation LastModified by Organization Detai ls LastModified Time None Recorded Concern Status LastModified by Organization Details LastModified Time None Recorded Payers Encounter Date Sequence Insurance Name Policy Number Policy Carbone Covered Member ID Carbone Member ID Guarantor Name 02/28/2025 1 [place] [id number] Librado Goldstein [id number] Librado Goldstein Notes Date Note Type Note Provider Name and Address Organization Details Recorded Time 02/28/2025 text/html Librado comes in today for [...] is a former patient of mine from [place]. He has been receiving botox injections for [...] he stopped going. SAL DODGE, DO [address] [place], [address], [place] [facility] 02/28/2025 11:56:17
--- OUTSIDE RECORDS SUMMARY | 2025-03-22 09:45 | XMS_ITS | Encounter Summary ---
Author Organization Healthcare Address [address] [id number] Care Team Providers Care Director Biology Name Role Phone Marogt Suarez MD Primary Care Provider [phone] Jefferson Sanchez APRN Primary Care Provider [phone] Reason for Visit * Reason Comments Med Refill Encounter Details Date Type Department Care Team (Late st Contact Info) Description 05/15/2021 Refill Family and Community Medicine [address] [place] [address] Margot Suarez MD [address] [place] [address] Social History Tobacco Use Types Packs/Day Years Used Date Smoking Tobacco: Never Smokeless Tobacco: Never PHQ-2 Answer Date Recorded Patient Health Questionnaire-2 Score 0 05/04/2021 Sex and Gender Information Value Date Recorded Sex Assigned at Not on file Legal Sex Male 8:31 PM EDT Gender Identity Not on file Sexual Orientation Not on file COVID-19 Exposure Response Date Recorded In the last month, have you been in contact with someone who was confirmed or suspected to have Coronavirus / COVID-19? No / Unsure 05/04/2021 2:25 PM EDT documented as of this encounter Miscellaneous Notes * Telephone Encounter - Kylie Banks, PharmD - 05/17/2021 6:06 PM EDT Refill request does not meet protocol. Sending to clinic triage for further review. Additional info: Diabetic med last appt 09/2020 (04/2021 was not a DM related appt) * Telephone Encounter - Kylie Banks PharmD - 05/17/2021 6:06 PM EDT Pravastatin renewed per protocol, Patient must make appointment for additional refills. documented in this encounter Plan of Treatment Not on file documented as of this encounter Visit Diagnoses Not on filedocumented in this encounter Care Teams Director Biology Relationship Specialty Start Date End Date Margot Suarez MD [address] [place] [address] PCP - General 01/29/21 01/23/24 Jefferson Sanchez APRN [address] [place] [id number] PCP - General 01/24/24 documented as of this encounter
--- OUTSIDE RECORDS SUMMARY | 2025-03-22 09:45 | XMS_ITS | Clinical Summary ---
Author Organization [facility] Address [address] [place], [place] [id number] Phone [email or web address] Care Team Providers Care Lumber Bearer Name Role Phone Unavailable Primary Care Provider Unavailabl e Active Problems Problem Noted Date Diagnosed Date Laboratory exam ordered as p art of routine general medical examination 06/27/2011 Overview (02/14/2018): Dizziness and giddiness 10/05/2010 Overview (02/14/2018): Routine general medical exam ination at a health care facility 06/18/2009 Overview (02/14/2018): Other examination of ears and hearing 06/10/2008 Overview (02/14/2018): Disorder of muscle, ligament, and fascia 008 Overview (02/14/2018): Rash and other nonspecific skin eruption 008 Overview (02/14/2018): Acute conjunctivitis 09/06/2007 Overview (02/14/2018): Social History Tobacco Use Types Packs/Day Years Used Date Smoking Tobacco: Never Assessed Intimate Partner Violence Answer Date R ecorded Insults You Not on file 12/29/2020 Threatens You Not on file 12/29/2020 Screams at You Not on file 12/29/2020 Physically Hurt Not on file 12/29/2020 Intimate Partner Violence Score Not on file 12/29/2020 Stress Answer Date Recorded Stress in your Life Not on file 07/22/2024 Dealing with Stress 3 07/22/2024 Sex and Gender Information Value Date Recorded Sex Assigned at Not on file Legal Sex Male 7:14 AM CDT Gender Identity Not on file Sexual Orientation Not on file Last Filed Vital Signs Vital Sign Reading Time Taken Comments Blood Pressure 122/78 07/30/2019 11:48 AM EST Pulse 79 07/30/2019 11:48 AM EST Temperature 37 C (98.6 F) 10/29/2021 7:30 PM EST Respiratory Rate 14 07/30/2019 11:48 AM EST Oxygen Saturation 96% 07/30/2019 11:48 AM EST Inhaled Oxygen Concentration - - Weight 91 kg (200 lb 11.2 oz) 07/30/2019 11:48 A M EST Height 174 cm (5' 8.5 ) 07/30/2019 11:48 AM EST Body Mass Index 30.07 07/30/2019 11:48 AM EST Plan of Treatment Health Maintenance Due Date Last Done Comments Dental Cleaning/Exam 1971 HIV Screening 1971 Hepatitis C Screening 1971 Annual Preventive Exam 1989 Hep B Infection Screening - Triple Screen 1989 Hepatitis B Immunization (1 of 3 - 19+ 3-dose series) 1990 Tetanus Diphtheria and Pertu ssis Immunization (1 - Tdap) 1990 Colorectal Cancer Screening 2001 Zoster Immunization (1 of 2) 2021 Covid-19 Immunization (1 - 2 season) 2024 Influenza Immunization (Seas on Ended) 2025 05/16/2017 HIB Immunization Aged Out No longer e ligible based on patient's age to complete this topic HPV Immunization Aged Out No longer e ligible based on patient's age to complete this topic Hepatitis A Immunization Aged Out No longer eligible based on patient's age to complete this topic Pneumococcal: Ped (0 to 5 Yr s) and At-Risk Member (6 to 64 Yrs) Aged Out No longer e ligible based on patient's age to complete this topic Polio Immunization Aged Out No longer eligible based on patient's age to complete this topic
--- OUTSIDE RECORDS SUMMARY | 2025-03-22 09:45 | XMS_ITS | Encounter Summary ---
Author Organization Healthcare Address [address] [id number] Care Team Providers Care Package Collector Name Role Phone Margot Suarez MD Primary Care Provider [phone] Jefferson Sanchez APRN Primary Care Provider [phone] Reason for Visit * Reason Comments Med Refill Encounter Details Date Type Department Care Team (Late st Contact Info) Description 05/20/2021 Refill Family and Community Medicine [address] [place] [address] Margot Suarez MD [address] [place] [address] Social History Tobacco Use Types [...] for the patient 05/20/2021 12:44 PM EDT documented as of this encounter Care Teams Package Collector Relationship Specialty Start Date End Date Margot Suarez MD [address] [place] [address] PCP - General 01/29/21 01/23/24 Jefferson Sanchez APRN [address] [place] [address] PCP - General 01/24/24 documented as of this encounter
[2025-03-22 09:59] LABS: Hematocrit 38.9 % (42.0-52.0); Hemoglobin 13.7 g/dL (14.1-18.0); Immature Granulocytes % 0.3 %; Mean Corpuscular HGB Conc 35.2 g/dL (31.8-35.4); Mean Corpuscular Hemoglobin 31.7 pg (27.0-31.2); Mean Corpuscular Volume 90.0 fl (80-94); Nucleated Red Blood Cells % 0 %; Platelet Count 230 K/mm3 (142-424); Red Blood Count 4.32 M/mm3 (4.60-6.20); Red Cell Distribution Width-SD 37.2 fL; White Blood Count 6.8 K/mm3 (4.8-10.8)
[2025-03-22 10:23] LABS: Alanine Aminotransferase 19 U/L (12-78); Albumin Level 4.6 g/dl (3.5-5.0); Albumin/Globulin Ratio 1.8 (1.1-1.8); Alkaline Phosphatase 50 U/L (38-126); Anion Gap 13.1 mEq/L (5-15); Aspartate Amino Transferase 30 U/L (17-59); Bilirubin,Total 0.6 mg/dl (0.2-1.3); Blood Urea Nitrogen 18 mg/dl (9-20); Calcium 9.4 mg/dl (8.4-10.2); Carbon Dioxide 32 mmol/L (22.0-30.0); Chloride 97 mmol/L (98-107); Cholesterol 191 mg/dl (140-200); Creatinine,Serum 0.70 mg/dl (0.66-1.25); Estimated Glomerular Filt Rate 118 ml/min (>60); GFR (African American) 143 ML/MIN (>60); Globulin 2.6 g/dL (1.3-3.2); Glucose 132 mg/dl (74-100); HDL Cholesterol 80 mg/dl (40-60); Potassium 4.1 mmoL/L (3.5-5.1); Sodium 138 mmol/L (136-145); Total Protein,Serum 7.2 g/dl (6.3-8.2); Triglycerides 81 mg/dl (30-150)
[2025-03-22 10:40] LABS: T4 (Thyroxine) 6.5 ug/dl (5.53-11.0)
[2025-03-22 10:41] LABS: 25-OH Vitamin D, Total 30.9 ng/mL (30-100)
[2025-03-22 10:54] LABS: Thyroid Stimulating Hormone 0.95 uIU/mL (0.465-4.68)
== END 2025-03-22 23:59 | disposition home or self-care (01) ==
LOC: LAB 09:43
PROVIDERS: PCP Nurse Practitioner Family; Visit Provider Nurse Practitioner Family
DX: E11.9 Type 2 diabetes mellitus without complications (principal); I10 Essential (primary) hypertension; Z12.5 Encounter for screening for malignant neoplasm of prostate
CPT/HCPCS: 36415; 80053; 80061; 82306; 84436; 84443; 85025; G0103